=== PATIENT | male | born 1975 | race Caucasian/White ===

== ENCOUNTER 2018-04-08 20:01 | Emergency (ER) | payer MEDICAID ==
[2018-04-08] MEDS ORDERED: Ketorolac 60 MG/2 ML SDV IM ONE (21:05)
[2018-04-08] MEDS ORDERED: Cyclobenzaprine 10 MG Tab PO ONE (21:06)
--- NOTE | 2018-04-08 21:06 | EDM.PDOC ---
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 Patient states he is from [place] was seen in a neurological treatment center there and the nerve stimulator was implanted there. His last visit with the neurologist was in November of this year. Pain has steadily worsened since he has been working here in [place], [place]. Patient has an appointment in 3 weeks with the pain management here. Review of Systems: As per history of present illness and below otherwise all systems reviewed and negative. Past medical history: As per history of present illness and as reviewed below otherwise noncontributory. Surgical history: As per history of present illness and as reviewed below otherwise noncontributory. Social history: No reported history of drug or alcohol abuse. Family history: As per history of present illness and as reviewed below otherwise noncontributory. Physical exam: Alert oriented man answers questions appropriately in full sentences without any shortness of breath. He is eating his pain as a 9 1/2 out of 10. HEENT: Atraumatic, normocehpalic, pupils reactive, negative for conjunctival pallor or scleral icterus, mucous membranes moist, throat clear, neck supple, nontender, trachea midline. Lungs: Clear to auscultation, breath sounds equal bilaterally, chest non tender. Heart: S1S2, regular, negative for clicks, rubs, or JVD. Abdomen: Soft, nondistended, nontender. Negative for masses or hepatossplenmegaly. Negative for costovertebral tenderness. Low back pain is present Pelvis: Stable nontender. Genitourinary: Deferred. Rectal: Deferred Extremities: Atraumatic, negative for cords or calf pain. Patient has difficulty raising his right leg from a sitting position. Patient increases pain with left leg raising from a sitting position but is not reported as painful as the right. Decreased strength in his right leg. Neurovascular unremarkable. Neuro: Awake, alert, oriented. Cranial nerves II through XII unremarkable. Cerebellum unremarkable. Motor and sensory unremarkable throughout. Exam nonfocal. Patient was standing up at bedside after medication given and is improved wanting to leave Diagnostics: [] Therapeutics: []Toradol 60 mg IM Impression: []Exacerbation of chronic back pain Plan: []Discharge Keep Appointment with your primary care provider and pain management Follow-up as directed Definitive disposition and diagnosis as appropriate pending reevaluation and review of above. Onset: Gradual Duration: Chronic, Getting Worse Back Pain Score (Numeric/FACES): 10 - Related Data Allergies Allergy/AdvReac Type Severity Reaction Status Date / Time No Known Allergies Allergy Verified 04/08/18 20:37 Home Meds: Home Meds . [No Known Home Meds] 04/08/18 [History] Past Medical History - Past Health History Medical/Surgical History: Denies Medical/Surgical History Social & Family History - Tobacco Use Smoking Status *Q: Current Every Day Smoker Years of Tobacco use: 10 Packs/Tins Daily: 1 ED ROS GENERAL - Review of Systems Review Of Systems: ROS reveals no pertinent complaints other than HPI. ED EXAM,LOWER BACK PAIN/INJURY - Physical Exam Exam: See Below (Redictation) Course - Vital Signs Last Recorded V/S: Last Vital Signs Temp 37.1 C 04/08/18 20:38 Pulse 97 04/08/18 20:38 Resp 18 04/08/18 20:38 BP 174/104 H 04/08/18 20:38 Pulse Ox 97 04/08/18 20:38 - Orders/Labs/Meds Meds: Medications Discontinued Medications Generic Name Dose Route Start Last Admin Trade Name Freq PRN Reason Stop Dose Admin Cyclobenzaprine HCl 10 mg 04/08/18 21:06 04/08/18 21:11 Flexeril PO 04/08/18 21:07 10 mg ONETIME ONE Administration Ketorolac Tromethamine 60 mg 04/08/18 21:05 04/08/18 21:11 Toradol IM 04/08/18 21:06 60 mg ONETIME ONE Administration Departure - Departure Time of Disposition: 21:40 Disposition: Home, Self-Care 01 Condition: Good Clinical Impression: Back pain Qualifiers: Back pain location: low back pain Chronicity: chronic Back pain laterality: right Sciatica presence: with sciatica Sciatica laterality: sciatica of right side Qualified Code(s): M54.41 - Lumbago with sciatica, right side; G89.29 - Other chronic pain - Discharge Information *PRESCRIPTION DRUG MONITORING PROGRAM REVIEWED*: Not Applicable *COPY OF PRESCRIPTION DRUG MONITORING REPORT IN PATIENT SHANNON: Not Applicable Instructions: Back Injury Prevention, [id number], Back Pain, Adult, Easy-to- Read Referrals: PCP,None [Primary Care Provider] - Forms: ED Department Discharge Additional Instructions: The following information is given to patients seen in the emergency department who are being discharged to home. This information is to outline your options for follow-up care. We provide all patients seen in our emergency department with a follow-up referral. The need for follow-up, as well as the timing and circumstances, are variable depending upon the specifics of your emergency department visit. If you don't have a primary care physician on staff, we will provide you with a referral. We always advise you to contact your personal physician following an emergency department visit to inform them of the circumstance of the visit and for follow-up with them and/or the need for any referrals to a consulting specialist. The emergency department will also refer you to a specialist when appropriate. This referral assures that you have the opportunity for followup care with a specialist. All of these measure are taken in an effort to provide you with optimal care, which includes your followup. Under all circumstances we always encourage you to contact your private physician who remains a resource for coordinating your care. When calling for followup care, please make the office aware that this follow-up is from your recent emergency room visit. If for any reason you are refused follow-up, please contact the [facility] emergency department at and asked to speak to the emergency department charge nurse. Follow-up with your primary care Return to the emergency department as necessary Keep your appointment with pain management
== END 2018-04-08 21:45 | disposition home or self-care (01) ==
LOC: MW.ED 20:28
DX: M54.41 Lumbago with sciatica, right side (principal); G89.29 Other chronic pain; F17.210 Nicotine dependence, cigarettes, uncomplicated
CPT/HCPCS: 96372; 99283; A9270; J1885

== ENCOUNTER 2018-05-06 12:58 | Emergency (ER) | payer MEDICAID ==
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
[2018-05-06] MEDS ORDERED: Ketorolac 60 MG/2 ML SDV IM ONE (13:36)
== END 2018-05-06 14:05 | disposition home or self-care (01) ==
LOC: MW.ED 12:58
DX: M54.16 Radiculopathy, lumbar region (principal); G89.29 Other chronic pain
CPT/HCPCS: 96372; 99283; J1885; J2360; 99282

== ENCOUNTER 2018-05-12 11:31 | Emergency (ER) | payer MEDICAID ==
[2018-05-12] MEDS ORDERED: Alum Hydrox/Mag Hydrox/Simeth 15 ML, Metoclopramide 5 MG, Lidocaine 2% 5 ML PO ONE ×3 (12:10)
[2018-05-12] MEDS ORDERED: Sodium Chloride 0.9% 1,000 ML IV ONE (12:10)
[2018-05-12] MEDS ORDERED: Sodium Chloride 0.9% 10 ML Syringe FLUSH PRN (12:10)
[2018-05-12] MEDS ORDERED: Sodium Chloride 0.9% 2.5 ML Syringe FLUSH PRN (12:10)
[2018-05-12] MEDS ORDERED: Pantoprazole 40 MG Vial IVPUSH ONE (12:10)
--- NOTE | 2018-05-12 12:16 | EDM.PDOC ---
ED HPI GENERAL MEDICAL PROBLEM - General Chief Complaint: Abdominal Pain Stated Complaint: STOMACH HURTS Time Seen by Provider: 05/12/18 11:56 - History of Present Illness INITIAL COMMENTS - FREE TEXT/NARRATIVE: HISTORY AND PHYSICAL: History of present illness: The patient is a 42-year-old male who presents with sudden onset of epigastric pain that started about an hour prior to coming to the ED stating that it radiates to his umbilicus. He has had several episodes of this over the last 15 years onetime was associated with a gallbladder attack and he has since had his gallbladder removed. He says that he has been seen in the past for it and given some medication and it got better but he has never had an endoscopy. He denies any chest pain or shortness of breath no fevers or chills or flank pain. Says the pain is stabbing like and came on suddenly and he did not have it when he woke this morning. He ate one piece of toast this morning and is currently drinking Mountain Dew in the ED. He says he drinks a lot of caffeinated products. He only drinks alcohol occasionally, once a month, and that was not recently. He has no other GI history. He has not had any fevers chills or upper respiratory symptoms. He did not take any [id number] preps prior to coming to the ED for this discomfort. He says he has had acid reflux symptoms episodically over the years but nothing he has been specifically diagnosed with. The pain is mostly in the midepigastric area and does radiate slightly to the left The patient tells me that he has chronic back and hip issues for which she has a pain pump in place and he does not feel that that is working very well. He has not seen orthopedics recently Review of systems: As per history of present illness and below otherwise all systems reviewed and negative. Past medical history: As per history of present illness and as reviewed below otherwise noncontributory. Surgical history: As per history of present illness and as reviewed below otherwise noncontributory. Social history: No reported history of drug or alcohol abuse. Family history: As per history of present illness and as reviewed below otherwise noncontributory. Physical exam: General: Well-developed well-nourished thin man who is nontoxic and vital signs are reviewed by me. He seems uncomfortable in the room but is not diaphoretic HEENT: Atraumatic, normocephalic, negative for conjunctival pallor or scleral icterus, mucous membranes moist, throat clear, neck supple, nontender, trachea midline. Lungs: Clear to auscultation, breath sounds equal bilaterally, chest nontender. Heart: S1S2, regular ate and rhythm no overt murmurs Abdomen: Soft, nondistended, there is tenderness with palpation of the epigastrium and in the left upper quadrant but there is no rebound or guarding. Bowel sounds are normoactive. Negative for masses or hepatosplenomegaly. Pelvis: Stable nontender. Genitourinary: Deferred. Rectal: Deferred. Extremities: Atraumatic, negative for cords or calf pain. Neurovascular unremarkable. Neuro: Awake, alert, oriented. Cranial nerves II through XII unremarkable. Cerebellum unremarkable. Motor and sensory unremarkable throughout. Exam nonfocal. Diagnostics: EKG CBC CMP troponin amylase lipase H. pylori CT scan of the abdomen and pelvis Therapeutics: IV IV fluids GI cocktail Protonix I discussed with the patient all testing results including the CT scan results showing the liver cyst that needs follow-up and his chronic changes of the femoral heads indicating possible avascular necrosis. He says he was never told that particular diagnosis and would like a second opinion as he has had chronic back and pain for some time. He will be given a prescription for antibiotics and antacids for his H pylori infection and has been given advice regarding dietary changes and reduction of caffeine. Impression: Epigastric pain, H. pylori positive; chronic back and hip pain bilaterally with bony changes on CAT scan, asymptomatic liver cyst Definitive disposition and diagnosis as appropriate pending reevaluation and review of above. epigastric area Pain Score (Numeric/FACES): 10 - Related Data Allergies Allergy/AdvReac Type Severity Reaction Status Date / Time No Known Allergies Allergy Verified 05/12/18 11:39 Home Meds: Home Meds Acetaminophen with Codeine [Tylenol with Codeine #3 Tablet] 1 tab PO Q6H PRN [History] Ibuprofen 800 mg PO DAILY PRN 05/12/18 [History] Past Medical History - Past Health History Medical/Surgical History: Denies Medical/Surgical History Genitourinary History: Reports: Renal Calculus Musculoskeletal History: Reports: Back Pain, Chronic - Infectious Disease History Infectious Disease History: Reports: Chicken Pox - Past Surgical History Musculoskeletal Surgical History: Reports: Other (See Below) Other Musculoskeletal Surgeries/Procedures:: back surgeries, last was 2017. R arm surgery Social & Family History - Family History Family Medical History: Noncontributory - Tobacco Use Smoking Status *Q: Current Every Day Smoker Years of Tobacco use: 30 Packs/Tins Daily: 1 - Caffeine Use Caffeine Use: Reports: Soda - Recreational Drug Use Recreational Drug Use: No ED ROS GENERAL - Review of Systems Review Of Systems: ROS reveals no pertinent complaints other than HPI. ED EXAM, GENERAL - Physical Exam Exam: See Below (See dictation) Course - Vital Signs Last Recorded V/S: Last Vital Signs Temp 36.8 C 05/12/18 11:36 Pulse 76 05/12/18 13:34 Resp 18 05/12/18 13:34 BP 153/94 H 05/12/18 13:34 Pulse Ox 94 L 05/12/18 13:34 - Orders/Labs/Meds Orders: Active Orders 24 hr Category Date Time Status EKG Documentation Completion [RC] STAT Care 05/12/18 12:09 Active Abdomen Pelvis w Cont [CT] Stat Exams 05/12/18 12:11 Taken Sodium Chloride 0.9% [Saline Flush] Med 05/12/18 12:10 Active 10 ml FLUSH ASDIRECTED PRN Sodium Chloride 0.9% [Saline Flush] Med 05/12/18 12:10 Active 2.5 ml FLUSH ASDIRECTED PRN Saline Lock Insert [OM.PC] Stat Oth 05/12/18 12:09 Ordered Medication Orders Sodium Chloride (Saline Flush) 10 ml FLUSH ASDIRECTED PRN PRN Reason: Keep Vein Open Sodium Chloride (Saline Flush) 2.5 ml FLUSH ASDIRECTED PRN PRN Reason: Keep Vein Open Labs: Laboratory Tests 05/12/18 05/12/18 05/12/18 Range/Units 12:20 12:20 12:20 WBC 9.43 (4.0-11.0) K/uL RBC 4.41 L (4.50-5.90) M/uL Hgb 14.8 (13.0-17.0) g/dL Hct 43.6 (38.0-50.0) % MCV 98.9 H (80.0-98.0) fL MCH 33.6 H (27.0-32.0) pg MCHC 33.9 (31.0-37.0) g/dL RDW Std Deviation 48.6 (28.0-62.0) fl RDW Coeff of Francisco 14 (11.0-15.0) % Plt Count 243 (150-400) K/uL MPV 10.00 (7.40-12.00) fL Neut % (Auto) 72.1 (48.0-80.0) % Lymph % (Auto) 19.3 (16.0-40.0) % [place] % (Auto) 7.7 (0.0-15.0) % Eos % (Auto) 0.8 (0.0-7.0) % Baso % (Auto) 0.1 (0.0-1.5) % Neut # (Auto) 6.8 H (1.4-5.7) K/uL Lymph # (Auto) 1.8 (0.6-2.4) K/uL [place] # (Auto) 0.7 (0.0-0.8) K/uL Eos # (Auto) 0.1 (0.0-0.7) K/uL Baso # (Auto) 0.0 (0.0-0.1) K/uL Nucleated RBC % 0.0 /100WBC Nucleated RBCs # 0 K/uL Sodium 138 (136-148) mmol/L Potassium 4.0 (3.5-5.1) mmol/L Chloride 105 (98-107) mmol/L Carbon Dioxide 27.1 (21.0-32.0) mmol/L BUN 13 (7.0-18.0) mg/dL Creatinine 1.2 (0.8-1.3) mg/dL Est Cr Clr Drug Dosing 104.73 mL/min Estimated GFR (MDRD) > 60.0 ml/min Glucose 122 H (74-106) mg/dL Calcium 8.9 (8.5-10.1) mg/dL Total Bilirubin 0.3 (0.2-1.0) mg/dL AST 25 (15-37) IU/L ALT 32 (14-63) IU/L Alkaline Phosphatase 78 (46-116) U/L Troponin I < 0.050 (0.000-0.056) ng/mL Total Protein 7.6 (6.4-8.2) g/dL Albumin 3.7 (3.4-5.0) g/dL Globulin 3.9 H (2.0-3.5) g/dL Albumin/Globulin Ratio 1.0 L (1.3-2.8) Amylase 65 (25-115) U/L Lipase 113 (73-393) U/L H. pylori IgG Antibody POSITIVE H (NEG) Meds: Medications Generic Name Dose Route Start Last Admin Trade Name Freq PRN Reason Stop Dose Admin Sodium Chloride 10 ml 05/12/18 12:10 Saline Flush FLUSH ASDIRECTED PRN Keep Vein Open Sodium Chloride 2.5 ml 05/12/18 12:10 Saline Flush FLUSH ASDIRECTED PRN Keep Vein Open Discontinued Medications Generic Name Dose Route Start Last Admin Trade Name Freq PRN Reason Stop Dose Admin Al Hydroxide/Mg Hydroxide 15 0 ml 05/12/18 12:10 05/12/18 12:37 ml/ Metoclopramide HCl 5 mg/ PO 05/12/18 12:11 1 each Lidocaine HCl 5 ml ONETIME ONE Administration Sodium Chloride 1,000 mls @ 999 mls/hr 05/12/18 12:10 05/12/18 12:36 Normal Saline IV 05/12/18 13:10 999 mls/hr STAT ONE Administration Pantoprazole Sodium 80 mg 05/12/18 12:10 05/12/18 12:39 Protonix Iv IVPUSH 05/12/18 12:11 80 mg .BOLUS ONE Administration Departure - Departure Time of Disposition: 14:18 Disposition: Home, Self-Care 01 Condition: Good Clinical Impression: Epigastric pain, Helicobacter pylori infection - Discharge Information Referrals: PCP,None [Primary Care Provider] - Forms: ED Department Discharge Additional Instructions: The following information is given to patients seen in the emergency department who are being discharged to home. This information is to outline your options for follow-up care. We provide all patients seen in our emergency department with a follow-up referral. The need for follow-up, as well as the timing and circumstances, are variable depending upon the specifics of your emergency department visit. If you don't have a primary care physician on staff, we will provide you with a referral. We always advise you to contact your personal physician following an emergency department visit to inform them of the circumstance of the visit and for follow-up with them and/or the need for any referrals to a consulting specialist. The emergency department will also refer you to a specialist when appropriate. This referral assures that you have the opportunity for followup care with a specialist. All of these measure are taken in an effort to provide you with optimal care, which includes your followup. Under all circumstances we always encourage you to contact your private physician who remains a resource for coordinating your care. When calling for followup care, please make the office aware that this follow-up is from your recent emergency room visit. If for any reason you are refused follow-up, please contact the [facility] emergency department at and ask to speak to the emergency department charge nurse. [facility] Primary [facility]- Internal Medicine and [place] [id number] [place] [id number] [facility] Specialty Care-General Surgery Professional [address] [address] [facility]--Orthopedic clinic [address] [id number] Please call and schedule follow-up in our clinics as we discussed as you will need a possible endoscopy when you're done with the treatment care plan that was given to you today for the H. pylori infection. Please also call and schedule follow-up in our orthopedics department for further evaluation of the changes seen in the bony hips found on CAT scan. Please reduce or eliminate caffeine use heat a bland diet and push hydration. Please use all medications as prescribed and return to ER as needed and as discussed - My Orders Last 24 Hours: My Active Orders 05/12/18 12:09 EKG Documentation Completion [RC] STAT Saline Lock Insert [OM.PC] Stat 05/12/18 12:10 Sodium Chloride 0.9% [Saline Flush] 10 ml FLUSH ASDIRECTED PRN Sodium Chloride 0.9% [Saline Flush] 2.5 ml FLUSH ASDIRECTED PRN 05/12/18 12:11 Abdomen Pelvis w Cont [CT] Stat - Assessment/Plan Last 24 Hours: My Active Orders 05/12/18 12:09 EKG Documentation Completion [RC] STAT Saline Lock Insert [OM.PC] Stat 05/12/18 12:10 Sodium Chloride 0.9% [Saline Flush] 10 ml FLUSH ASDIRECTED PRN Sodium Chloride 0.9% [Saline Flush] 2.5 ml FLUSH ASDIRECTED PRN 05/12/18 12:11 Abdomen Pelvis w Cont [CT] Stat
[2018-05-12 12:50] LABS: CHLORIDE,CL 105 mmol/L (98-107); SODIUM,NA 138 mmol/L (136-148)
[2018-05-12] MEDS ORDERED: Iopamidol 755 MG/ML 500 ML Multipack Bottle IVPUSH STA (14:26)
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
== END 2018-05-12 14:40 | disposition home or self-care (01) ==
LOC: MW.ED 11:31
DX: A04.8 Other specified bacterial intestinal infections (principal); K76.89 Other specified diseases of liver; M54.9 Dorsalgia, unspecified; G89.29 Other chronic pain; M25.551 Pain in right hip; M25.552 Pain in left hip; F17.210 Nicotine dependence, cigarettes, uncomplicated
CPT/HCPCS: 36415; 74177; 80053; 82150; 83690; 84484; 85025; 86677; 93005; 96361; 96374; 99284; A9270; C9113; J7040; Q9967; 99283

== ENCOUNTER 2018-06-13 08:47 | Day surgery (SDC) | payer MEDICAID ==
[~2018-06-13 08:47] MED LIST: Lactated Ringers 1,000 ML IV SCH; Lidocaine 2% 5 ML SDV ONE; Midazolam 1 MG/ML 2 ML SDV ONE; Propofol 200 MG/20 ML SDV ONE; fentaNYL 100 MCG/2 ML SDV ONE
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
[2018-06-13] MEDS ORDERED: Sodium Chloride 0.9% 2.5 ML Syringe FLUSH PRN (12:48)
[2018-06-13] MEDS ORDERED: Ondansetron 4 MG/2 ML SDV IVPUSH PRN (12:48)
[2018-06-13] MEDS ORDERED: Sodium Chloride 0.9% 10 ML Syringe FLUSH PRN (12:48)
--- NOTE | 2018-06-13 12:51 | PCM.OPNOTE ---
- General Post-Op/Procedure Note Date of Surgery/Procedure: 06/13/18 Operative Procedure(s): Esophagogastroduodenoscopy with biopsy Pre Op Diagnosis: Progressive heartburn. History of Helicobacter pylori gastritis Post-Op Diagnosis: Acute and chronic gastritis Anesthesia Technique: MAC (ASA II) Primary Surgeon: Maxime Saenz News Commentator: Oseas Hale Condition: Good Free Text/Narrative:: DICTATION [id number] CPT CODE 25728
--- NOTE | 2018-06-13 13:17 | PCM48HPAN ---
Post Anesthesia Note - EVALUATION WITHIN 48HRS OF ANESTHETIC Vital Signs in Normal Range: Yes Patient Participated in Evaluation: Yes Respiratory Function Stable: Yes Airway Patent: Yes Cardiovascular Function Stable: Yes Hydration Status Stable: Yes Pain Control Satisfactory: Yes Nausea and Vomiting Control Satisfactory: Yes Mental Status Recovered: Yes Resp Rate: 10 - COMMENTS/OBSERVATIONS Free Text/Narrative:: no anesthesia problems
--- NOTE | 2018-06-13 13:42 | OR ---
SURGEON: Maxime Saenz M.D. DATE OF PROCEDURE: 06/13/2018 OPERATION PERFORMED: Esophagogastroduodenoscopy with biopsy. VETERINARIAN HELPER: Dr. Cheney, PGY2. ANESTHESIA: MAC. ASA CLASSIFICATION: II. PREOPERATIVE DIAGNOSES: 1. Progressive heartburn. 2. History of Helicobacter pylori gastritis. POSTOPERATIVE DIAGNOSIS: Acute and chronic gastritis. DESCRIPTION OF PROCEDURE: The patient was taken to the endoscopy room and positioned on the endoscopy table in the supine position. Time-out was called for appropriate identification of patient and procedure. Monitored anesthesia care was provided. The bite block was placed between the patient's teeth. The gastroscope was inserted through the bite block into the oropharynx and advanced without difficulty through the esophagus and stomach into the duodenum where examination was carried out in a retrograde fashion. The duodenum shows no acute inflammatory changes or ulcerations. The stomach does show moderate gastritis. Antral biopsies were obtained to look for the presence of Helicobacter pylori. No ulcers were noted. The gastroscope was retroflexed to visualize the proximal stomach. The patient does have a small hiatal hernia that was best seen from above. The cardia demonstrates no acute gastritis or ulcerations. No tumors were noted. The gastroscope was then withdrawn, aspirating the stomach as the scope was withdrawn. The GE junction was well defined, shows minimal if any inflammatory changes. The esophagus demonstrated good contractility. No mid or proximal lesions were identified. The vocal cords were not visualized as the scope was withdrawn. The patient tolerated the procedure well and was taken to recovery room in stable condition. GLEN / MAYITO /[id number]
== END 2018-06-13 13:20 | disposition home or self-care (01) ==
LOC: MW.SDS 08:47
PROVIDERS: ATTEND Surgery
DX: K29.50 Unspecified chronic gastritis without bleeding (principal); K29.00 Acute gastritis without bleeding; K44.9 Diaphragmatic hernia without obstruction or gangrene; I10 Essential (primary) hypertension; K21.9 Gastro-esophageal reflux disease without esophagitis; F17.210 Nicotine dependence, cigarettes, uncomplicated
CPT/HCPCS: 43239; J2250; J2704; J3010; J7120

== ENCOUNTER 2024-04-02 08:31 | Emergency (ER) | payer SELFPAY ==
[2024-04-02] MEDS: Ketorolac 30 MG/ML SDV IM ONE (09:15)
[2024-04-02] MEDS: Lidocaine 4% 1 each Patch TOP PRN (09:15)
== END 2024-04-02 09:36 | disposition home or self-care (01) ==
LOC: MW.ED 08:31
DX: M54.50 Low back pain, unspecified (principal); I10 Essential (primary) hypertension; Z90.49 Acquired absence of other specified parts of digestive tract; Z75.8 Other problems related to medical facilities and other health care
CPT/HCPCS: 96372; 99283; A9270; J1885

== ENCOUNTER 2024-06-01 10:12 | Emergency (ER) | payer OTHER ==
[2024-06-01] MEDS ORDERED: Sodium Chloride 0.9% 10 ML Syringe FLUSH PRN (10:22)
[2024-06-01] MEDS ORDERED: Sodium Chloride 0.9% 20 ML SDV IV PRN (10:22)
[2024-06-01] MEDS ORDERED: Sodium Chloride 0.9% 2.5 ML Syringe FLUSH PRN (10:22)
[2024-06-01 10:40] LABS: BASOPHILS ABSOLUTE AUTO 0.02 K/uL (0.00-0.20); BASOPHILS PERCENT AUTO 0.1 % (0.0-1.0); EOSINOPHILS ABSOLUTE AUTO 0.04 K/uL (0.00-0.45); EOSINOPHILS PERCENT AUTO 0.3 % (0.0-6.0); HEMATOCRIT 42.8 % (42.0-52.0); HEMOGLOBIN 14.7 g/dL (14.0-18.0); IMMATURE GRAN ABSOLUTE AUTO 0.04 K/uL (0.00-0.05); IMMATURE GRAN PERCENT AUTO 0.3 % (0.0-0.4); LYMPHOCYTES ABSOLUTE AUTO 2.04 K/uL (1.00-4.80); MEAN CORPUSCULAR HEMOGLOBIN 32.4 pg (28.0-32.0); MEAN CORPUSCULAR HGB CONC 34.3 g/dL (32.0-36.0); MEAN CORPUSCULAR VOLUME 94.3 fL (83.0-99.0); MONOCYTES ABSOLUTE AUTO 0.63 K/uL (0.00-0.80); MONOCYTES PERCENT AUTO 4.3 % (0.0-8.0); NEUTROPHILS ABSOLUTE AUTO 11.76 K/uL (1.80-7.70); PLATELET COUNT,PLT 347 K/uL (150-400); RED BLOOD CELL COUNT 4.54 M/uL (4.52-5.90); WHITE BLOOD CELL COUNT,WBC 14.53 K/uL (3.9-11.3)
[2024-06-01] MEDS: Iopamidol 755 MG/ML 500 ML Multipack Bottle IVPUSH STA (10:51)
[2024-06-01 10:54] LABS: INR 1.03 (0.86-1.11); PTT,PARTIAL THROMBOPLSTIN TIME 28.5 SEC (23.9-30.7)
[2024-06-01 11:42] LABS: A/G RATIO 0.8 (0.9-1.6); ALANINE AMINOTRANSFERASE,ALT 20 IU/L (14-63); ALBUMIN 3.2 g/dL (3.4-5.0); ALKALINE PHOSPHATASE 82 U/L (46-116); ASPARTATE AMNIOTRANSFERASE,AST 13 IU/L (15-37); BILIRUBIN TOTAL 0.6 mg/dL (0.2-1.0); BLOOD UREA NITROGEN,BUN 12 mg/dL (7.0-18.0); CALCIUM 8.5 mg/dL (8.5-10.1); CARBON DIOXIDE,CO2 24.4 mmol/L (21.0-32.0); CHLORIDE,CL 100 mmol/L (98-107); CREATININE 1.8 mg/dL (0.8-1.3); EST CRCL DRUG DOSING (CG) 65.59 mL/min; GLUCOSE RANDOM 116 mg/dL (74-106); POTASSIUM,K 3.4 mmol/L (3.5-5.1); PROTEIN TOTAL,TP 7.2 g/dL (6.4-8.2); SODIUM,NA 135 mmol/L (136-148)
[2024-06-01] MEDS: Tenecteplase 50 MG Kit IVPUSH ONE (11:45)
[2024-06-01 11:48] LABS: ESTIMATED GFR 46 mL/min (>60); ETHANOL BLOOD MEDICAL < 3.0 mg/dL
[2024-06-01] MEDS: Aspirin 325 MG Tab PO ONE (12:08)
== END 2024-06-01 12:14 | disposition left against medical advice (07) ==
LOC: MW.ED 10:12
DX: I63.9 Cerebral infarction, unspecified (principal); Z53.29 Procedure and treatment not carried out because of patient's decision for other reasons; I10 Essential (primary) hypertension; Z75.8 Other problems related to medical facilities and other health care; Z79.82 Long term (current) use of aspirin; Z79.899 Other long term (current) drug therapy; Z90.49 Acquired absence of other specified parts of digestive tract
CPT/HCPCS: 36415; 70450; 70496; 70498; 71045; 80053; 80307; 84484; 85025; 85610; 85730; 93005; 99285; A9270; Q9967

== ENCOUNTER 2025-02-06 22:43 | Emergency (ER) | payer OTHER ==
[2025-02-06] MEDS ORDERED: Sodium Chloride 0.9% 2.5 ML Syringe FLUSH PRN (23:09)
[2025-02-06] MEDS ORDERED: Sodium Chloride 0.9% 10 ML Syringe FLUSH PRN (23:09)
[2025-02-06] MEDS ORDERED: Sodium Chloride 0.9% 20 ML SDV IV PRN (23:09)
[2025-02-06 23:20] LABS: BASOPHILS ABSOLUTE AUTO 0.04 K/uL (0.00-0.20); BASOPHILS PERCENT AUTO 0.4 % (0.0-1.0); EOSINOPHILS ABSOLUTE AUTO 0.15 K/uL (0.00-0.45); EOSINOPHILS PERCENT AUTO 1.3 % (0.0-6.0); HEMATOCRIT 44.7 % (42.0-52.0); HEMOGLOBIN 15.7 g/dL (14.0-18.0); IMMATURE GRAN ABSOLUTE AUTO 0.02 K/uL (0.00-0.05); IMMATURE GRAN PERCENT AUTO 0.2 % (0.0-0.4); LYMPHOCYTES ABSOLUTE AUTO 2.85 K/uL (1.00-4.80); LYMPHOCYTES PERCENT AUTO 25.5 % (24.0-44.0); MEAN CORPUSCULAR HEMOGLOBIN 33.3 pg (28.0-32.0); MEAN CORPUSCULAR HGB CONC 35.1 g/dL (32.0-36.0); MEAN CORPUSCULAR VOLUME 94.7 fL (83.0-99.0); MEAN PLATELET VOLUME 9.9 fL (9.4-12.4); MONOCYTES ABSOLUTE AUTO 0.81 K/uL (0.00-0.80); MONOCYTES PERCENT AUTO 7.2 % (0.0-8.0); NEUTROPHILS ABSOLUTE AUTO 7.31 K/uL (1.80-7.70); NEUTROPHILS PERCENT AUTO 65.4 % (41.0-71.0); PLATELET COUNT,PLT 260 K/uL (150-400); RED BLOOD CELL COUNT 4.72 M/uL (4.52-5.90); WHITE BLOOD CELL COUNT,WBC 11.18 K/uL (3.9-11.3)
[2025-02-06] MEDS: Labetalol 100 MG/20 ML MDV IVPUSH ONE (23:36)
[2025-02-06 23:50] LABS: A/G RATIO 0.9 (0.9-1.6); ALBUMIN 3.7 g/dL (3.4-5.0); BILIRUBIN TOTAL 0.5 mg/dL (0.2-1.0); CARBON DIOXIDE,CO2 25.3 mmol/L (21.0-32.0); CREATININE 1.2 mg/dL (0.8-1.3); EST CRCL DRUG DOSING (CG) 97.32 mL/min; POTASSIUM,K 3.4 mmol/L (3.5-5.1); PROTEIN TOTAL,TP 7.9 g/dL (6.4-8.2)
== END 2025-02-07 00:59 | disposition left against medical advice (07) ==
LOC: MW.ED 22:43
DX: R04.2 Hemoptysis (principal); I10 Essential (primary) hypertension; Z79.899 Other long term (current) drug therapy; Z90.49 Acquired absence of other specified parts of digestive tract
CPT/HCPCS: 36415; 71046; 80053; 84484; 85025; 85379; 93005; 96374; 99285; J1920

== ENCOUNTER 2025-04-01 22:42 | Emergency (ER) | payer OTHER ==
[2025-04-01] MEDS ORDERED: Esmolol/Normal Saline 2.5 GM/250 ML BAG IV ONE (22:43)
[2025-04-01 23:18] LABS: BASOPHILS ABSOLUTE AUTO 0.03 K/uL (0.00-0.20); BASOPHILS PERCENT AUTO 0.2 % (0.0-1.0); EOSINOPHILS ABSOLUTE AUTO 0.07 K/uL (0.00-0.45); EOSINOPHILS PERCENT AUTO 0.6 % (0.0-6.0); IMMATURE GRAN ABSOLUTE AUTO 0.04 K/uL (0.00-0.05); IMMATURE GRAN PERCENT AUTO 0.3 % (0.0-0.4); LYMPHOCYTES ABSOLUTE AUTO 1.83 K/uL (1.00-4.80); LYMPHOCYTES PERCENT AUTO 14.6 % (24.0-44.0); MEAN PLATELET VOLUME 9.5 fL (9.4-12.4); MONOCYTES ABSOLUTE AUTO 0.64 K/uL (0.00-0.80); MONOCYTES PERCENT AUTO 5.1 % (0.0-8.0); NEUTROPHILS ABSOLUTE AUTO 9.91 K/uL (1.80-7.70); NEUTROPHILS PERCENT AUTO 79.2 % (41.0-71.0); NRBC ABSOLUTE 0.00 K/uL (0.00-0.02); NRBC PERCENT 0.0 /100WBC (0.0-0.2); PLATELET COUNT,PLT 227 K/uL (150-400); RED BLOOD CELL COUNT 4.55 M/uL (4.52-5.90); WHITE BLOOD CELL COUNT,WBC 12.52 K/uL (3.9-11.3)
[2025-04-01 23:34] LABS: INR 1.03 (0.86-1.11); PTT,PARTIAL THROMBOPLSTIN TIME 25.9 SEC (23.9-30.7)
[2025-04-01] MEDS: Iopamidol 755 MG/ML 500 ML Multipack Bottle IVPUSH STA (23:50)
[2025-04-01 23:51] LABS: A/G RATIO 1.0 (0.9-1.6); ALANINE AMINOTRANSFERASE,ALT 25 IU/L (14-63); ASPARTATE AMNIOTRANSFERASE,AST 25 IU/L (15-37); BILIRUBIN TOTAL 0.6 mg/dL (0.2-1.0); BLOOD UREA NITROGEN,BUN 13 mg/dL (7.0-18.0); CARBON DIOXIDE,CO2 22.0 mmol/L (21.0-32.0); CHLORIDE,CL 104 mmol/L (98-107); CREATININE 1.3 mg/dL (0.8-1.3); ESTIMATED GFR 68 mL/min (>60); GLUCOSE RANDOM 134 mg/dL (74-106); POTASSIUM,K 3.3 mmol/L (3.5-5.1); PROTEIN TOTAL,TP 6.9 g/dL (6.4-8.2); SODIUM,NA 139 mmol/L (136-148)
[2025-04-01] MEDS: Ondansetron 4 MG/2 ML SDV IVPUSH ONE (23:52)
[2025-04-02] MEDS ORDERED: Heparin Sodium 5,000 Units/ML Vial IVPUSH ONE (00:04)
[2025-04-02] MEDS ORDERED: Heparin Sodium/0.45% NaCl 25,000 UNITS/250 ML BAG IV SCH (00:15)
[2025-04-02] MEDS: Labetalol 100 MG/20 ML MDV IVPUSH ONE (00:16)
[2025-04-02] MEDS: Esmolol/Normal Saline 2,500 MG/250 ML BAG IV SCH (00:37)
[2025-04-02] MEDS: niCARdipine/Normal Saline 20 MG in Premix Bag 1 BAG IV SCH (00:38)
[2025-04-02] MEDS: niCARdipine/Normal Saline 200 ML ONE (02:05)
[2025-04-02] MEDS: Iopamidol 755 MG/ML 500 ML Multipack Bottle IVPUSH STA (05:13)
== END 2025-04-02 02:08 ==
LOC: MW.ED 22:42
DX: I77.72 Dissection of iliac artery (principal); I71.03 Dissection of thoracoabdominal aorta; M54.42 Lumbago with sciatica, left side; I10 Essential (primary) hypertension; K21.9 Gastro-esophageal reflux disease without esophagitis; Z90.49 Acquired absence of other specified parts of digestive tract; Z79.899 Other long term (current) drug therapy
CPT/HCPCS: 36415; 70496; 70498; 71275; 72131; 75635; 80053; 83605; 85025; 85610; 85730; 96365; 96366; 96368; 96375; 99285; J1171; J1805; J1920; J2270; J2405; Q9967; 99291; J3490